=== PATIENT | male | born 1950 | race Caucasian/White ===

== ENCOUNTER 2019-01-16 12:08 | Outpatient (CLI) | payer MEDICARE ==
--- NOTE | 2019-01-16 13:52 | MRI ---
MRI CERVICAL SPINE NONCONTRAST: 01/16/19 HISTORY: 68-year-old male with M54.12, radiculopathy of cervical region and chronic cervicalgia. COMPARISON: None. FINDINGS: Slight reversal of curvature. Cervical spinal cord is normal in size and probably normal in signal. M oderate disc space narrowing at C3-4, C4-5, and C5-6 with end plate irregularities. No high grade zuñiga bluxation. Multilevel mild and moderate facet DJD throughout almost all levels. Modic type I end plat e narrow changes at C3-4 and C4-5. Otherwise no major bone marrow signal abnormality. C1-2: No high grade central stenosis. C2-3: No significant central stenosis or significant right neural foraminal stenosis. Mild to moderat e left neural foraminal stenosis. C3-4: Mild central spinal canal stenosis. Bilateral uncinate process osteophytes. Severe bilateral ne ural foraminal stenosis. C4-5: Broad based disc-osteophytic bar complex indents the ventral surface of the spinal cord. Thicke marielos ligamentum flavum abuts and slightly indents the dorsal surface of the spinal cord. Effacement o f CSF signal. Bilateral uncinate process osteophytes. Severe central spinal canal stenosis and severe bilateral neural foraminal stenosis. Slight degenerative retrolisthesis of C4 on C5 contributes to t he central stenosis. C5-6: Thickened ligamentum flavum indents dorsal surface of spinal cord. Broad based disc/osteophytic bar complex and slight degenerative retrolisthesis of C5 on C6, indent the ventral surface of the sp inal cord. Severe central spinal canal stenosis with effacement of CSF signal. Bilateral uncinate pr ocess osteophytes cause severe bilateral neural foraminal stenosis. C6-7: Mild broad based disc/osteophytic bar complex does not contact the ventral surface of the spina l cord. Mild to moderate central spinal canal stenosis. Small bilateral uncinate process osteophytes. Severe bilateral neural foraminal stenosis, left worse than right. C7-T1: No central stenosis. Bilateral mild to moderate neural foraminal stenosis. IMPRESSION: 1. Cervical spondylosis, with multilevel high grade degenerative disc disease. 2. Severe central spinal canal stenosis with chronic cord impingement at C4-5 and C5-6. 3. Severe bilateral neural foraminal stenosis at all levels from C3-4 through C6-7. POS: FRANKLYNH
--- NOTE | 2019-01-16 14:19 | MRI ---
LUMBAR SPINE MRI WITHOUT IV CONTRAST: 01/16/19 HISTORY: Intervertebral disc disorder with radiculopathy, M51.16. FINDINGS: Generalized disc desiccation changes and ligament and facet hypertrophic changes. There is some multi level end plate changes including some type I end plate changes at T11-T12, L2-L3, L4-L5, and L5-S1. Multiple bilateral renal T2 hyperintense and T1 hypointense nodular foci, statistically bilateral jose al cysts. Conus medullaris region appears unremarkable terminating at L1-L2. T12-L1 disc: No canal or lateral recess or foraminal stenosis. L1-L2 disc: Unremarkable. L2-L3 disc: Mild lateral recess stenosis and bilateral foraminal stenosis. L3-L4: Moderate central canal and bilateral recess stenosis and mild bilateral foraminal stenosis. L4-L5: Severe disc space narrowing with moderate central canal and lateral recess stenosis and severe bilateral foraminal stenosis. L5-S1 disc: Moderate central canal and lateral recess stenosis and severe bilateral foraminal stenos is. IMPRESSION: Multilevel variable severity canal, lateral recess, and foraminal stenosis as above. Multilevel type I end plate changes. Bilateral renal T2 hyperintense, T1 hypointense nodular foci, statistically cysts. POS: C
== END 2019-01-16 12:09 | disposition home or self-care (01) ==
LOC: SCSMRI 12:08
PROVIDERS: ATTEND Specialist
DX: M51.16 Intervertebral disc disorders with radiculopathy, lumbar region (principal); M50.10 Cervical disc disorder with radiculopathy, unspecified cervical region; M47.22 Other spondylosis with radiculopathy, cervical region; M48.02 Spinal stenosis, cervical region; M48.061 Spinal stenosis, lumbar region without neurogenic claudication; M48.07 Spinal stenosis, lumbosacral region; G95.9 Disease of spinal cord, unspecified
CPT/HCPCS: 72141; 72148

== ENCOUNTER 2019-03-26 08:46 | Day surgery (SDC) | payer MEDICARE ==
[2019-03-25 11:52] VITALS: BMI 29.2
[~2019-03-26 08:46] MED LIST: Prevnar 13-Val Conj/PF 0.5 ML SYRINGE IM ONE
[2019-03-26] MEDS ORDERED: FLU VACC TS2019-20(65YR UP)/PF 180 MCG/0.5 ML SYRINGE IM ONE (09:00)
[2019-03-26 09:03] LABS: #Basophils 0.1 thou/uL (0.0-0.2); #Eosinphils 0.2 thou/uL (0.0-0.7); #Lymphocytes 2.4 thou/uL (1.20-3.40); #Monocytes 1.1 thou/uL (0.11-0.59); #Neutrophils 6.6 thou/uL (1.40-6.50); %Basophils 0.9 % (0.0-1.0); %Lymphocytes 22.9 % (21.0-51.0); %Monocytes 10.4 % (0.0-10.0); %Neutrophils 63.9 % (42.0-75.0); Hemoglobin 16.5 g/dL (14.0-18.0); Mean Corpuscular HGB CONC 33.2 g/dL (32.0-36.0); Mean Corpuscular Hemoglobin 30.3 pg (27.0-31.0); Mean Corpuscular Volume 91.5 fL (78.0-98.0); Mean Platelet Volume 8.9 fL (7.4-10.4); Platelet Count 171 thou/uL (130-400); RBC Distribution Width 12.8 % (11.5-14.5); Red Blood Cell (RBC) Count 5.44 mill/uL (4.70-6.10); White Blood Cell (WBC) Count 10.3 thou/uL (4.8-10.8)
[2019-03-26 09:09] LABS: INR-International Normal Ratio 0.9; Prothrombin Time 12.3 SEC (12.0-14.7)
[2019-03-26 09:10] LABS: PTT 39.9 SEC (22.9-36.1)
[2019-03-26] MEDS ORDERED: Fentanyl 100 MCG/2 ML VIAL ONE (09:49)
[2019-03-26] MEDS ORDERED: Midazolam HCl 2 mg/2 ml Vial ONE (09:49)
[2019-03-26] MEDS ORDERED: Sodium Bicarbonate 2.5 MEQ/5 ML VIAL ONE (09:51)
--- NOTE | 2019-03-26 11:26 | RAD ---
EXAM: XR Chest Insp/Exp PROVIDED CLINICAL HISTORY: Post biopsy right lower lobe mass COMPARISON: 03/15/2019 FINDINGS: Mass overlying the right hilar region and in the right lower lobe is again seen. Tiny adjacent nodula r density is present. Left lung is clear. No pneumothorax or pleural effusion is seen. Cardiac silhouette is magnified by projection. Pulmonary vasculature is within normal limits. Remote left-benji ed rib fractures are again noted. IMPRESSION: 1. No evidence of pneumothorax. 2. Right lower lobe mass. 3. Remote left-sided rib fractures
--- NOTE | 2019-03-26 13:40 | RAD ---
EXAM: XR Chest Insp/Exp PROVIDED CLINICAL HISTORY: Post right lung mass biopsy. Follow-up evaluation. COMPARISON: Study obtained earlier on this date. FINDINGS: Right lower lobe mass is again seen. There is no evidence of a right-sided pneumothorax. Left-sided r ib fractures are again seen. No other interval change. IMPRESSION: 1. No evidence of a right-sided pneumothorax with right lung mass again present.
--- NOTE | 2019-03-26 13:49 | CT ---
EXAM: CT Lung Perc Biopsy PROVIDED CLINICAL HISTORY: Right lower lobe lung mass. Biopsy was requested. COMPARISON: CT thorax on 03/15/2019. TECHNIQUE: The procedure including the risks and complications were explained to the patient and the patient's w manuela, and informed consent was obtained. The patient was placed on the CT scan table in the prone position. Limited noncontrasted CT images were obtained through the level of the right upper lobe mas s with grid localizer in place. An area overlying the mass was marked, and the area was then meticulously prepped and draped in the usual sterile fashion. The skin and subcutaneous tissues were infiltrated with buffered 1% lidocaine for local anesthesia. A small skin incision was made. A 19-gauge guide needle was advanced followed by axial noncontrasted CT images. This was repeated until the tip of the ureter was placed in the most peripheral and latera l aspect of the necrotic appearing right upper lobe mass. Final positioning was confirmed with [address] images. Utilizing coaxial technique, a total of three 20-gauge core needle bio psy specimens were obtained. Pathologist was available for evaluation of the specimen. Pathologist noted necrosis of the lesion, but cellular material was also obtained on initial evaluation. The needle was removed, and hemostasis was achieved with direct pressure. Follow-up CT thorax was obt ained which demonstrated no evidence of a pneumothorax. Patient's vital signs remained stable during the procedure as well as postprocedure. Follow-up immediate chest x-ray and [address] x-ray did not demonstrate evidence of a pneumothorax. The patient was monitored in radiology nurses holding area postprocedure. IMPRESSION: 1. Necrotic right upper lobe mass with adjacent small pulmonary nodule. 2. Technically successful CT-guided percutaneous biopsy of the right lower lobe mass. Final pathology is currently pending.
== END 2019-03-26 13:45 | disposition home or self-care (01) ==
LOC: CT 08:46
PROVIDERS: ATTEND Family Medicine
PROC: 0BDF8ZX Extraction of Right Lower Lung Lobe, Via Natural or Artificial Opening Endoscopic, Diagnostic (ICD-10-PCS; principal; 2019-03-26)
DX: C34.31 Malignant neoplasm of lower lobe, right bronchus or lung (principal); R91.1 Solitary pulmonary nodule; R91.8 Other nonspecific abnormal finding of lung field; I12.9 Hypertensive chronic kidney disease with stage 1 through stage 4 chronic kidney disease, or unspecified chronic kidney disease; E11.22 Type 2 diabetes mellitus with diabetic chronic kidney disease; N18.3 Chronic kidney disease, stage 3 (moderate); E11.40 Type 2 diabetes mellitus with diabetic neuropathy, unspecified; J44.9 Chronic obstructive pulmonary disease, unspecified; I25.10 Atherosclerotic heart disease of native coronary artery without angina pectoris; E03.9 Hypothyroidism, unspecified; M54.10 Radiculopathy, site unspecified; K21.9 Gastro-esophageal reflux disease without esophagitis; H54.61 Unqualified visual loss, right eye, normal vision left eye; Z87.891 Personal history of nicotine dependence; Z79.4 Long term (current) use of insulin; Z79.02 Long term (current) use of antithrombotics/antiplatelets; Z79.899 Other long term (current) drug therapy; Z88.2 Allergy status to sulfonamides
CPT/HCPCS: 32405; 36415; 71045; 77012; 85025; 85610; 85730; 88305; 88313; 88333; 88341; 88342; J2250; J3010

== ENCOUNTER 2019-04-04 11:45 | Outpatient (CLI) | payer MEDICARE ==
--- NOTE | 2019-04-04 15:43 | PET ---
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 Exam requested for initial staging. TECHNIQUE: PET scanning with CT attenuation correction was performed from the base of the brain through the prox imal thighs following the intravenous administration of 11.2 mCi [id number] in the right antecubital fos sa. COMPARISON: None. CORRELATION: CT chest of 03/15/19. FINDINGS: No alexus hypermetabolism is seen in the neck, axilla, mediastinum, hilar regions, abdomen, pelvis, or inguinal regions. There is intense uptake in the dominant right lower lobe superior segment mass noted on the CT scan w ith a SUV of 12.3. The satellite nodule medial to this mass demonstrates no abnormal FDG localization (SUV 1.8). No hypermetabolic liver, adrenal, or skeletal lesions are seen. There is physiologic activity in the GI and tracts, and the visualized portions of the brain. There is focally increased uptake in the sigmoid colon in the left lower quadrant with a SUV of 7.1. CT scan used for attenuation correction demonstrates no evidence of pleural effusions or ascites. The re are renal cysts and colonic diverticulosis. IMPRESSION: 1. Findings are consistent with right lower lobe lung malignancy. No evidence of distant metastatic disease. 2. Hypermetabolic focus in the sigmoid colon/left lower quadrant should be evaluated with colonoscop y. POS: HAILEY
== END 2019-04-04 11:46 | disposition home or self-care (01) ==
LOC: PET 11:45
PROVIDERS: ATTEND Internal Medicine
DX: C34.90 Malignant neoplasm of unspecified part of unspecified bronchus or lung (principal)
CPT/HCPCS: 78815; A9552

== ENCOUNTER 2019-04-10 12:59 | Outpatient (CLI) | payer MEDICARE ==
--- NOTE | 2019-04-10 15:53 | MRI ---
MRI BRAIN WITH AND WITHOUT CONTRAST: HISTORY: A 68-year-old male with small cell lung cancer. Rule out brain metastasis. FINDINGS: The ventricles are normal in size and configuration. There is no major intraaxial signal abnormality , restricted diffusion, abnormal intraaxial enhancement, mass, midline shift or any other mass effect , recent intraaxial hemorrhage, or extraaxial fluid collection. The right ocular globe is smaller clarisse n the left. No abnormal enhancement of either globe. The bilateral lenses are surgically absent. IMPRESSION: 1. The brain is normal. 2. Small right globe. jnr POS: [facility]
--- NOTE | 2019-04-11 10:48 | PFT ---
PATIENT HISTORY: HEIGHT: 70 in WEIGHT: 198 lbs SMOKER: yes HOW LON yrs PACKS PER DAY: 1 PRODUCTIVE COUGH: no LUNG DISEASE: PHYSICIAN INTERPRETATION FINAL REPORT: Patient had good effort and good cooperation. FVC 3.11 (69%), FEV1 2.20 (65%), FEV1/FVC 0.71. RV 2.86 (111%), TLC 6.67 (94%) DIFFUSION 13.03(44%) There is a reduction to both the FEV1 and FVC. The ratio is normal suggesting this is mostly a restrictive process. That being said, there is significant scooping to the expiratory limb of the flow volume loop, and near significant reversibility, both suggestive of superimposed obstructive lung disease. Lung Volumes including Residual Volume and Total Lung Capacity are normal. Diffusion Capacity is moderately impaired. IMPRESSION: Overall, these pulmonary function studies are consistent with mild ventilatory deficit, secondary to combined restrictive and obstructive process with moderate reduction in gas exchange. Clinical and radiographic correlation should be considered. Editing Computer Publisher: DORITA Dorr Operator: DORITA SHARMA
== END 2019-04-10 13:00 | disposition home or self-care (01) ==
LOC: MRI 12:59
PROVIDERS: ATTEND Internal Medicine
DX: C34.90 Malignant neoplasm of unspecified part of unspecified bronchus or lung (principal); J44.9 Chronic obstructive pulmonary disease, unspecified; H44.89 Other disorders of globe
CPT/HCPCS: 70553; 94060; 94727; 94729